=== PATIENT | female | born 1965 | race Caucasian/White ===

== ENCOUNTER → 2016-12-07 | Outpatient (CLI) | payer OTHER ==
[~2016-12-07] MED LIST: ANUSOL R; BACTRIM DS1 TAB PO; NORCO 10-325 T1 EACH PO; ZOFRAN8 MG PO
[2016-12-07 07:57] LABS: BASOPHIL % 0.7 %; EOSINOPHIL % 0.7 %; HEMATOCRIT 37.4 % (33.0-46.0); HEMOGLOBIN 12.9 g/dL (10.0-15.0); IMMATURE GRANULOCYTE % 0.4 %; LYMPHOCYTE # 1.2 K/uL (0.8-4.0); LYMPHOCYTE % 26.6 %; MCH 32.4 pg (27.0-34.0); MCHC 34.5 gm/dL (32.0-36.5); MONOCYTE # 0.5 K/uL (0.0-1.0); MPV 8.7 fl (9.4-12.4); NEUTROPHIL # (ANC) 2.8 K/uL (1.8-7.8); NEUTROPHIL % 61.6 %; NRBC % 0 /100WBC (0-0.00); PLATELET COUNT 204 K/uL (150-450); RBC 3.98 M/uL (3.50-5.50); RDW-CV 12.7 % (11.9-14.6); WBC 4.5 K/uL (4.0-11.0)
[2016-12-07 08:16] LABS: ALBUMIN 3.6 gm/dL (3.5-5.0); ANION GAP 10.9 (10.0-19.0); CALCIUM 8.4 mg/dL (8.5-10.5); CREATININE 1.2 mg/dL (0.5-1.1); POTASSIUM 3.9 mMol/L (3.7-5.1); TOTAL PROTEIN 6.5 g/dL (6.0-8.4)
[2016-12-07 08:20] LABS: TOTAL BILIRUBIN 0.4 mg/dL (0.0-1.5)
== END | disposition disaster alternative care site (69) ==
LOC: GOPD 11-30 12:30 → GRAD 07:06
PROVIDERS: Internal Medicine Hematology & Oncology
DX: C83.89 Other non-follicular lymphoma, extranodal and solid organ sites (principal); D70.9 Neutropenia, unspecified; J98.4 Other disorders of lung; K44.9 Diaphragmatic hernia without obstruction or gangrene; N83.201 Unspecified ovarian cyst, right side; N83.202 Unspecified ovarian cyst, left side; Z85.528 Personal history of other malignant neoplasm of kidney; Z90.5 Acquired absence of kidney
CPT/HCPCS: J2001; J7060; Q9967